=== PATIENT | male | born 1985 | race Asian ===

== ENCOUNTER 2024-05-25 09:22 | Emergency (ER) | payer OTHER, SELFPAY ==
[2024-05-25 09:28] VITALS: BP 140/83
--- NOTE | 2024-05-25 09:43 | ED.GENMED ---
History of Present Illness
General
Chief Complaint: Male Genito-Urinary Symptoms
Source: patient
Exam Limitations: none
Time Seen by Provider: 05/25/24 09:37
History of Present Illness
History of Present Illness:
See MDM
Past History
Past History
ED Past Medical History: None
ED Past Surgical History: None
Social History
Tobacco: Non-smoker
Alcohol: None
Phy Exam
Physical Exam
Physical Exam:
See MDM
Course
Orders/Labs/Results
Orders:
Orders
05/25/24 09:43
Scrotum US [US Scrotum] Urgent
Comment:
Reason For Exam: left scrotal pain
05/25/24 11:09
Urinalysis Reflex To Culture Urgent
Date Specimen was Collected: 05/25/24
Time Specimen was Collected: 11:07
Vital Signs
Initial and Last Documented VS:
Initial Vital Signs
Temp Pulse Resp BP Pulse Ox
98.1 F 61 18 140/83 96
05/25/24 09:28 05/25/24 09:28 05/25/24 09:28 05/25/24 09:28 05/25/24 09:28
Last Documented Vital Signs
Temp Pulse Resp BP Pulse Ox
98.1 F 70 20 119/74 99
05/25/24 09:28 05/25/24 11:11 05/25/24 11:11 05/25/24 11:11 05/25/24 11:11
MDM/Problems Addressed
Differential Diagnosis Includes:
HPI and MDM Narrative:
39-year-old male presenting for resolved scrotal bleeding. Patient was in the shower and he noted that he was bleeding from his right scrotum. It self resolved. Patient is unsure if this is related to left scrotal pain that he has encountered
over the past few days.
Patient denies urinary symptoms or concern for infection. On exam, there is no active bleeding noted to his scrotum. There appears to be a pinhole scratch overlying the capillary bed where he was likely bleeding from. Patient is unsure if he
scratched himself or not. Patient also has mild tenderness to the left scrotal area which is likely an inguinal hernia. Will obtain ultrasound to rule out any evidence of mass or epididymitis
Physical exam
General: Well appearing and non-toxic
HEENT: protecting airway
Neck: appears supple
CV: No evidence of cyanosis
Resp: No accessory muscle use
Abd: Non-distended
: Pinhole scab to right scrotum overlying capillary bed. Mild tenderness to left inguinal canal versus epididymis.
Extremities: No deformities
Neuro: alert
Psych: Normal affect
Skin: Intact
Problems Addressed including Acute and Chronic Conditions affecting care:
1. Scrotal bleeding
Acuity: acute
Prognosis: stable
Details: Likely related to a scratch. Bleeding has resolved
2. Scrotal pain
Acuity: acute
Prognosis: stable
Details: Likely in setting of inguinal hernia. Will obtain ultrasound to rule out mass versus epididymitis
Updates
Ultrasound negative for torsion or epididymitis. He had reference and expected inguinal hernia. Discussed outpatient follow-up with general surgery
Differential Diagnosis (but not limited to): Inguinal hernia, abdomen
Testing considered: CT abdomen/pelvis
Drug therapy (if applicable): OTC meds, please see d/c instruction regarding Rx drugs
Amount and/or Complexity of Data Reviewed
Clinical info obtained from: Patient
External data reviewed: N/A
Labs I independently reviewed (but not limited to): UA neg
Radiology: Ultrasound report reviewed
Pulse Ox: not hypoxic
EKG independently reviewed: N/A
Professor Of Voice: N/A
Critical Care: N/A
Risk of Complication:
Social Determinants of health: Good social support
Discussed with other providers: N/A
Escalation of Care includes Admit/Obs: After being observed in the Emergency Department, pt stable for discharge.
Occasional wrong word or 'sound a like' substitutions may have occurred due to the inherent limitations of voice recognition software. Read the chart carefully and recognize, using context, where substitutions have occurred.
*Critical Care Note
Total Time (30-74mins, 75-104mins- exclusive of procedures): Not Applicable
ED Attending Note
-
Portions of this chart may have been created with voice recognition software.� Occasional wrong word or��sound alike� substitutions may have occurred due to the inherent limitations of voice recognition software.
Discharge Plan
Departure
Patient Disposition: Home (Routine Discharge)
Date of Disposition: 05/25/24
Time of Disposition: 11:46
Patient with high blood pressure during this ER visit?: No
Discharge Problem:
Inguinal hernia
Referrals:
Lucy Mahoney PA-C [Family Provider] -
Delano Jennings MD [Active] -
Activity Restrictions/Additional Instructions:
Please return for any worsening symptoms.
You may return at any time if you have further concerns.
Please follow up with your doctor at the first available appointment, preferably this week.
Please make an appointment to see the general surgeon to discuss the hernia found on ultrasound.
Thank you for choosing [facility].
Interventions
Interventions:
*Risk Screen - Suicide Last Done: 05/25/24 09:31
*General Assessment Last Done: 05/25/24 09:28
*Neglect/Abuse Screening Last Done: 05/25/24 09:28
*Nursing Disposition Last Done: 05/25/24 12:00
ED-Male Genitourinary Assessment Last Done: 05/25/24 10:00
Discharge Date and Time
Discharge Date/Time: 05/25/24 12:01
Print Language: BERMUDIAN
[2024-05-25 11:11] VITALS: BP 119/74
[2024-05-25 11:44] LABS: Urine Albumin Negative (Neg - Trace); Urine Bilirubin Negative (Negative); Urine Character Clear (Clear); Urine Color Yellow; Urine Glucose Negative (Negative); Urine Ketone Negative (Negative); Urine Leukocyte Negative (Negative); Urine Nitrite Negative (Negative); Urine Occult Blood Negative (Negative); Urine Urobilinogen Negative (Neg - 1+)
== END 2024-05-25 12:01 | disposition home or self-care (01) ==
LOC: EMR 09:22
PROVIDERS: EMERGENCY PHYSICIAN Student in an Organized Health Care Education/Training Program; FAMILY PHYSICIAN Physician Assistant
DX: K40.90 Unilateral inguinal hernia, without obstruction or gangrene, not specified as recurrent (principal)
CPT/HCPCS: 99284; 76870; 81003; 93976

== ENCOUNTER → 2024-06-20 11:43 | Outpatient (REF) | payer OTHER, SELFPAY | LOC: HWRAD 11:43 | PROVIDERS: ATTENDING PHYSICIAN Surgery; FAMILY PHYSICIAN Physician Assistant | DX: R10.32 Left lower quadrant pain (principal) | CPT/HCPCS: 74177; Q9967 ==